=== PATIENT | male | born 1955 | race Caucasian/White ===

== ENCOUNTER 2019-01-19 06:54 | Day surgery (SDC) | payer BC ==
[2019-01-18 17:52] VITALS: BMI 28.1
[~2019-01-19 06:54] MED LIST: TOBRAMYCIN/DEXAMETHASONE OPHTH. OINTMENT 1 TUBE TP ONE
[2019-01-19] MEDS ORDERED: ACETAMINOPHEN 325 MG TABLET (FP) PO PRN (07:00)
[2019-01-19] MEDS ORDERED: CIPROFLOXACIN HCL 0.3% OPHTH 2.5ML BOTTLE ONE (07:10)
[2019-01-19] MEDS ORDERED: PHENYLEPHRINE 2.5% OPHTH SOLN 15 ML BOTTLE ONE (07:10)
[2019-01-19] MEDS ORDERED: DICLOFENAC SODIUM 0.1% OPHTHALMIC 2.5ML BOTTLE ONE (07:11)
[2019-01-19] MEDS ORDERED: KETOROLAC TROMETHAMINE 0.5% EYE DROP 1 DROP DROPS ONE (07:11)
[2019-01-19] MEDS ORDERED: TROPICAMIDE 1% OPHTH SOLN 15 ML BOTTLE ONE (07:11)
[2019-01-19] MEDS ORDERED: CHONDROITIN SU A/HYALUR SOD 1 KIT ONE (07:22)
[2019-01-19] MEDS ORDERED: TOBRAMYCIN/DEXAMETHASONE OPHTH. OINTMENT 1 TUBE ONE (07:23)
[2019-01-19] MEDS: DICLOFENAC SODIUM 0.1% OPHTHALMIC 2.5ML BOTTLE OP SCH ×3 (07:25→07:35)
[2019-01-19] MEDS: KETOROLAC TROMETHAMINE 0.5% EYE DROP 1 DROP DROPS OP SCH ×3 (07:25→07:35)
[2019-01-19] MEDS: CIPROFLOXACIN HCL 0.3% OPHTH 2.5ML BOTTLE OP SCH ×3 (07:25→07:35)
[2019-01-19] MEDS: PHENYLEPHRINE 2.5% OPHTH SOLN 15 ML BOTTLE OP SCH ×3 (07:25→07:35)
[2019-01-19] MEDS: TROPICAMIDE 1% OPHTH SOLN 15 ML BOTTLE OP SCH ×3 (07:25→07:35)
[2019-01-19] MEDS ORDERED: TETRACAINE 0.5% OPHTH SOLN 2 ML BOTTLE ONE (07:31)
[2019-01-19] MEDS ORDERED: LIDOCAINE HCL/PF 1% SDV 5ML VIAL ONE (07:31)
--- NOTE | 2019-01-19 08:36 | HP ---
History & Physical Update - History History: No Change - Physical Physical: No Change - Assessment Assessment: No Change - Plan Plan: No Change (reviewed Dr. Olivarez's H and P from 01/04/19 no changes)
--- NOTE | 2019-01-19 08:39 | HP ---
- Patient Scheduled date of Surgery: 01/19/19 Scheduled Surgical Procedure: Phacoemulsification and cataract extraction with PCIOL Affected Eye: Right Chief Complaint (Indication for surgery): Decreased vision affecting ADLs - Ocular History Other Eye History: Other (FRANNIE) Eye Medications: vigamox Previous Eye Surgery: none - Medical History Illnesses: Hypertension, Hypercholesterolemia, Diabetes (diet controlled) Current Medications: Ambulatory Orders Amlodipine Besylate 10 mg PO DAILY 01/18/19 Rosuvastatin [Crestor -] 10 mg PO DAILY 01/18/19 Allergies/Adverse Reactions: Allergies Allergy/AdvReac Type Severity Reaction Status Date / Time No Known Allergies Allergy Unverified 01/19/19 07:30 Ocular Examination - Best Corrected Visual Acuity Distance: Right eye: 20/40-2 Distance: Left eye: 20/30 - External/Slit Lamp Examination Abnormalities: pingueculum, - Intraocular Pressure Intraocular Pressure - Right eye: 17 Intraocular Pressure-Left eye: 17 - Lens Lens: 2+ NS - Vitreous/Retina Vitreous/Retina: C:D 0.3 m/v/p wnl - Special Examination M - Right eye: -1.00-0.75 x 055 M - Left eye: -0.50-1.00 x 090 K - Right eye: 41.75/42.50 x065 K - Left eye: 41.75/42.50 x135 AL - Right eye: 23.48 AL - Left eye: 23.29 IOL bag: +22.5 AUOOTO IOL sulcus: +21.5 [id number] IOL AC: +18.5 [id number] - Impression Impression: Cataract Right Eye - Plan Plan: Phacoemulsification and cataract extraction - IOL Right eye Post-hospital care will be provided in office on: 01/20/19
[2019-01-19] MEDS ORDERED: TETRACAINE 0.5% OPHTH SOLN 2 ML BOTTLE OD ONE (08:45)
[2019-01-19] MEDS ORDERED: MIDAZOLAM HCL 2 MG/2 ML SINGLE DOSE VIAL ONE (08:46)
[2019-01-19] MEDS ORDERED: POVIDONE-IODINE 5% OPHTHALMIC PREP 30 ML SOLUTION OD ONE (08:46)
[2019-01-19] MEDS ORDERED: LIDOCAINE HCL 1% PRESERVATIVE FREE - 30ML VIAL IO ONE (08:54)
[2019-01-19] MEDS ORDERED: BSS (NA/CA/MG/K) BALANCED SALT SOLUTION OPHTH SOLN 15 ML BOTTLE OD ONE (08:54)
[2019-01-19] MEDS ORDERED: CHONDROITIN SU A/HYALUR SOD 1 KIT IO ONE (08:54)
[2019-01-19] MEDS ORDERED: EPINEPHrine/PF 1 MG/1 ML (1:1,000) AMPULE SQ ONE (08:59)
[2019-01-19] MEDS ORDERED: TOBRAMYCIN/DEXAMETHASONE OPHTH. OINTMENT 1 TUBE TP ONE (09:25)
--- NOTE | 2019-01-19 09:34 | OP ---
Ophthalmology Operative Note Pre-Operative Diagnosis: Cataract Affected Eye: Right Operation: Phacoemulsification and cataract extraction with PCIOL Findings: NS Cataract right eye Post-Operative Diagnosis: Same as Pre-op Hand Polisher: None Anesthesiologist: Lynette Kay MD Anesthesia: Topical Specimens Removed: none Estimated blood loss: < 1cc Drains & Tubes with Location: none Operative Report Dictated: Yes
[2019-01-19 09:40] VITALS: TEMP 98.5
--- NOTE | 2019-01-19 10:13 | OP ---
DATE OF OPERATION: DATE OF DICTATION: 01/19/2019 PREOPERATIVE DIAGNOSIS: Nuclear sclerotic cataract, right eye. POSTOPERATIVE DIAGNOSIS: Nuclear sclerotic cataract, right eye. PROCEDURE: Phacoemulsification and cataract extraction with insertion of posterior chamber intraocular lens, right eye. SURGEON: Zaria Kraft MD RADIO ANTENNA INSTALLER: None. ANESTHESIA: Topical. ANESTHESIOLOGIST: Lynette Kay MD OPERATIVE PROCEDURE: The patient received Tetracaine eye drops and was gently sedated and prepped and draped in the usual sterile fashion so as to expose only the right eye. Ophthalmic Betadine was instilled into the inferior fornix and lashes were taped out of the surgical field. An eyelid speculum was placed into the right eye. Paracentesis was made in superior temporal clear cornea at the limbus. Then 0.5 mL of nonpreserved lidocaine 1% was injected into the anterior chamber and then 1 mL of dilute epinephrine 1:10,000 was injected into the anterior chamber to improve pupillary dilation. Viscoelastic material was instilled into the anterior chamber via the paracentesis. A 2.4-mm keratome blade was then used to create the main incision in temporal clear cornea at the limbus. A continuous curvilinear capsulorhexis was performed using a cystotome and Utrata forceps. Hydrodissection of the lens cortex was performed using BSS on a cannula until the nucleus was noted to be freely rotating. The phacoemulsification tip was then inserted via the main wound and used to scope 2 perpendicular grooves into the lens nucleus. The nucleus was cracked into 4 quadrants. Each quadrant was lifted out of the capsule into the iris plane and individually phacoemulsified. The remaining cortical material was then aspirated using the irrigation/aspiration port. The capsular bag was inflated using ProVisc and a preloaded AcrySof lens model [id number] power +22.5 diopters was injected into the capsular bag. It was centered using a Sinskey hook. The residual viscoelastic material was removed from the anterior chamber using irrigation and aspiration. The wound edges were hydrated using BSS. The wound was tested for leakage and it was found to be questionably leaking. Therefore, one 10-0 nylon suture was placed across the wound. The wound was again tested and was found to be watertight. Tobradex ointment was placed in the eye, and the speculum was removed from the eye, and the eyelid was closed. A sterile dressing and shield were placed over the eye. The patient was transferred to the recovery room in stable condition, told to follow up in 1 day. ZARIA KRAFT M.D. [id number]
[2019-01-19 10:21] VITALS: BP 126/76; PULSE 67
== END 2019-01-19 10:24 | disposition home or self-care (01) ==
LOC: JASU-SURG 06:54
PROVIDERS: ATTEND Ophthalmology
PROC: 08RK3JZ Replacement of Left Lens with Synthetic Substitute, Percutaneous Approach (ICD-10-PCS; principal; 2019-01-19 08:30)
DX: H25.11 Age-related nuclear cataract, right eye (principal)

== ENCOUNTER 2022-12-14 05:49 | Day surgery (SDC) | payer BC ==
[2022-12-10 10:57] VITALS: BMI 29.7
[2022-12-14 11:06] VITALS: TEMP 97.1
[2022-12-14 11:55] VITALS: BP 138/87; PULSE 65; RESP 11
== END 2022-12-14 11:50 | disposition home or self-care (01) ==
LOC: JASU-ENDO 05:49
PROVIDERS: ATTEND Internal Medicine Gastroenterology
PROC: 0DB78ZX Excision of Stomach, Pylorus, Via Natural or Artificial Opening Endoscopic, Diagnostic (ICD-10-PCS; 2022-12-14)
PROC: 0DB98ZX Excision of Duodenum, Via Natural or Artificial Opening Endoscopic, Diagnostic (ICD-10-PCS; principal; 2022-12-14 11:00)
DX: K29.50 Unspecified chronic gastritis without bleeding (principal); K21.00 Gastro-esophageal reflux disease with esophagitis, without bleeding; K44.9 Diaphragmatic hernia without obstruction or gangrene; I10 Essential (primary) hypertension
CPT/HCPCS: 88305-TC; 88342-TC